=== PATIENT | female | born 1975 | race Caucasian/White ===

== ENCOUNTER 2016-04-08 17:27 | Emergency (ER) | payer OTHER ==
[~2016-04-08] VITALS: Wt 127.0 kg
[~2016-04-08 17:27] MED LIST: AMOXICILLIN500 MG PO; AMOXIL500 MG PO; ANTIVERT/2525 MG PO; AUGMENTIN 875-875 MG PO; BENTYL10 MG PO; CIPROFLOXACIN500 MG PO; DAYPRO600 M1 PO; DONNATAL1 TAB PO; EC NAPROSYN500 MG PO; FLAGYL500 MG PO; FLEXERIL10 MG PO; FLEXERIL5 MG PO; HYDROCODONE BIT1 T11 PO; KEFLEX500 MG PO; LOMOTIL 0.025 M1 TA1 PO; MIRALAX POWDER17 G1 PO; MOTRIN800 MG PO; Metformin Hydr500 MG PO; NAPROSYN500 MG PO; NAPROXEN500 M1 PO; NORCO 325 MG-51 TAB PO; NORCO 5-325 TA1 EACH PO; PRILOSEC10 MG PO; PRILOSEC20 MG PO; PRILOSEC40 MG PO; PROTONIX40 MG PO; ROBAXIN500 M1 PO; ROBITUSSIN AC 110 ML PO; SIMVASTATIN10 MG PO; TESSALON PERLE200 MG PO; TRAMADOL HCL50 MG PO; VICODIN 500 MG-1 TAB PO; XANAX0.5 MG PO; ZITHROMAX Z PA250 MG PO; ZOFRAN4 MG PO; ZOLOFT100 MG PO; ZOLOFT25 MG PO; ZYRTEC10 MG PO
[2016-04-08 18:15] VITALS: BP 111/66
[2016-04-08] MEDS ORDERED: AMINOPHYLLIN200 MG PO (19:38)
[2016-04-08] MEDS ORDERED: VERTICALM25 MG PO (19:38)
[2016-04-08 19:57] LABS: BILIRUBIN NEGATIVE (NEGATIVE); BLOOD NEGATIVE (NEGATIVE); CLARITY SL CLOUDY (CLEAR); COLOR YELLOW (YELLOW); GLUCOSE NEGATIVE (NEGATIVE); KETONE NEGATIVE (NEGATIVE); LEUKO ESTERASE NEGATIVE (NEGATIVE); NITRITE NEGATIVE (NEGATIVE); PROTEIN NEGATIVE (NEGATIVE)
[2016-04-08 20:05] LABS: BACTERIA 1+
[2016-04-08 20:06] LABS: URINE REFLEX COMMENT NO (NO)
== END 2016-04-08 19:52 | disposition home or self-care (01) ==
LOC: ED 17:27
PROVIDERS: Nurse Practitioner Family
DX: N39.0 Urinary tract infection, site not specified (principal); H66.91 Otitis media, unspecified, right ear; R31.9 Hematuria, unspecified; F17.200 Nicotine dependence, unspecified, uncomplicated; Z79.899 Other long term (current) drug therapy

== ENCOUNTER 2016-04-26 14:56 | Emergency (ER) | payer OTHER ==
[~2016-04-26] VITALS: Wt 127.0 kg
[~2016-04-26 14:56] MED LIST changes: +AMINOPHYLLIN200 MG PO; +VERTICALM25 MG PO
[2016-04-26] MEDS ORDERED: ULTRAM50 MG PO (17:03)
[2016-04-26 17:06] VITALS: BP 102/49
== END 2016-04-26 17:31 | disposition home or self-care (01) ==
LOC: ED 14:56
DX: M54.5 Low back pain (principal); M54.2 Cervicalgia; R51 Headache; F17.200 Nicotine dependence, unspecified, uncomplicated; Z90.49 Acquired absence of other specified parts of digestive tract; V89.2XXA Person injured in unspecified motor-vehicle accident, traffic, initial encounter; Y93.89 Activity, other specified; Y92.413 State road as the place of occurrence of the external cause; Y99.9 Unspecified external cause status

== ENCOUNTER 2016-04-30 16:15 | Emergency (ER) | payer OTHER ==
[~2016-04-30] VITALS: Ht 170.1 cm; Wt 129.3 kg
[~2016-04-30 16:15] MED LIST changes: +ULTRAM50 MG PO
[2016-04-30 16:25] VITALS: BP 122/70
[2016-04-30 16:54] LABS: BILIRUBIN NEGATIVE (NEGATIVE); BLOOD NEGATIVE (NEGATIVE); CLARITY CLEAR (CLEAR); COLOR YELLOW (YELLOW); GLUCOSE NEGATIVE (NEGATIVE); KETONE NEGATIVE (NEGATIVE); LEUKO ESTERASE NEGATIVE (NEGATIVE); NITRITE NEGATIVE (NEGATIVE); PH 5.5 (5.0-9.0); PROTEIN TRACE (NEGATIVE); SPECIFIC GRAVITY >= 1.030 (1.005-1.030); UROBILINOGEN 0.2 E.U./dl (0.2-1.0)
[2016-04-30 17:01] LABS: BASO # 0.1 10*3/uL (0.0-0.1); BASO % 0.7 % (0.0-1.0); EOS # 0.4 10*3/uL (0.0-0.4); EOS % 2.3 % (1.0-4.0); HEMATOCRIT 37.7 % (37.0-47.0); HEMOGLOBIN 11.9 g/dl (12.0-16.0); IG # 0.3 10*3/uL (0.0-0.1); LYMPH # 4.1 10*3/uL (1.3-4.4); MEAN CELL VOLUME 89.8 fl (81.0-99.0); MEAN CORPUSCULAR HGB 28.3 pg (27.0-31.0); MEAN CORPUSCULAR HGB CONC 31.6 g/dl (33.0-37.0); MEAN PLATELET VOLUME 9.2 fl (9.6-12.3); MONO # 0.7 10*3/uL (0.1-1.0); MONO % 4.3 % (3.0-9.0); NEUT # 10.2 10*3/uL (2.3-7.9); NEUT % 64.9 % (47.0-73.0); PLATELET COUNT AUTOMATED 378 10*3/uL (130-400); RED CELL DISTRI WIDTH 15.5 % (0-14.5); WHITE BLOOD COUNT 15.8 10*3/uL (4.8-10.8)
[2016-04-30 17:13] LABS: MUCOUS TRACE; URINE REFLEX COMMENT NO (NO); WBC 0-2 wbc/hpf (0-5)
[2016-04-30 17:18] LABS: ALBUMIN 3.2 gm/dl (3.1-4.5); ALKALINE PHOSPHATASE 63 U/L (45-117); BILIRUBIN, TOTAL 0.3 mg/dl (0.2-1.0); BUN 20 mg/dl (7-24); CARBON DIOXIDE 28 mmol/L (21-32); CHLORIDE 105 mmol/L (98-107); EST GLOM FILT AFRICAN AMERICAN > 60 ml/min; GLUCOSE 108 mg/dL (65-99); POTASSIUM 3.8 mmol/L (3.5-5.1); SGOT/AST 11 IU/L (3-35); SGPT/ALT 24 U/L (12-78); SODIUM 141 mmol/L (136-145); TOTAL PROTEIN 7.1 gm/dL (6.4-8.2)
[2016-04-30] MEDS ORDERED: PERCOCET 325 MG1 TA2 PO (18:11)
== END 2016-04-30 18:19 | disposition home or self-care (01) ==
LOC: ED 16:15
PROVIDERS: Registered Nurse
DX: R10.11 Right upper quadrant pain (principal); F17.200 Nicotine dependence, unspecified, uncomplicated; Z90.49 Acquired absence of other specified parts of digestive tract; V89.2XXD Person injured in unspecified motor-vehicle accident, traffic, subsequent encounter; Y93.89 Activity, other specified; Y92.413 State road as the place of occurrence of the external cause; Y99.9 Unspecified external cause status

== ENCOUNTER 2016-07-01 19:49 | Emergency (ER) | payer OTHER ==
[~2016-07-01] VITALS: Ht 170.1 cm; Wt 127.0 kg
[~2016-07-01 19:49] MED LIST changes: +PERCOCET 325 MG1 TA2 PO
[2016-07-01 20:09] VITALS: BP 140/69
[2016-07-01] MEDS ORDERED: MINOCYCLINE HC100 MG PO (20:09)
== END 2016-07-02 01:03 | disposition home or self-care (01) ==
LOC: ED 19:49
DX: S80.01XA Contusion of right knee, initial encounter (principal); F17.200 Nicotine dependence, unspecified, uncomplicated; Z98.890 Other specified postprocedural states; Z98.51 Tubal ligation status; Z79.899 Other long term (current) drug therapy; X58.XXXA Exposure to other specified factors, initial encounter; Y93.89 Activity, other specified; Y92.89 Other specified places as the place of occurrence of the external cause; Y99.9 Unspecified external cause status

== ENCOUNTER 2016-07-27 19:49 | Emergency (ER) | payer OTHER ==
[~2016-07-27] VITALS: Ht 170.1 cm; Wt 127.0 kg
[~2016-07-27 19:49] MED LIST changes: +MINOCYCLINE HC100 MG PO
[2016-07-27 19:53] VITALS: BP 135/84
[2016-07-27] MEDS ORDERED: Motrin,Rufen800 MG PO (20:05)
[2016-07-27] MEDS ORDERED: CLINDAMYCIN150 MG PO (20:05)
== END 2016-07-27 20:11 | disposition home or self-care (01) ==
LOC: ED 19:49
DX: K02.9 Dental caries, unspecified (principal); K04.01 Reversible pulpitis; F17.200 Nicotine dependence, unspecified, uncomplicated; Z79.899 Other long term (current) drug therapy

== ENCOUNTER 2016-08-14 19:34 | Emergency (ER) | payer OTHER ==
[~2016-08-14] VITALS: Wt 127.0 kg
[~2016-08-14 19:34] MED LIST changes: +CLINDAMYCIN150 MG PO; +Motrin,Rufen800 MG PO
[2016-08-14 19:54] VITALS: BP 134/66
[2016-08-14] MEDS ORDERED: MEDROL DOSEPAK4 MG PO (20:06)
== END 2016-08-14 20:04 | disposition home or self-care (01) ==
LOC: ED 19:34
DX: L50.9 Urticaria, unspecified (principal); F17.200 Nicotine dependence, unspecified, uncomplicated; Z90.49 Acquired absence of other specified parts of digestive tract

== ENCOUNTER 2016-09-19 13:39 | Emergency (ER) | payer OTHER ==
[~2016-09-19] VITALS: Ht 170.1 cm; Wt 127.0 kg
[~2016-09-19 13:39] MED LIST changes: +MEDROL DOSEPAK4 MG PO
[2016-09-19 13:47] VITALS: BP 113/71
[2016-09-19 14:15] LABS: BILIRUBIN 1+ (NEGATIVE); BLOOD 2+ (NEGATIVE); CLARITY SL CLOUDY (CLEAR); COLOR YELLOW (YELLOW); GLUCOSE NEGATIVE (NEGATIVE); KETONE TRACE (NEGATIVE); LEUKO ESTERASE 1+ (NEGATIVE); NITRITE NEGATIVE (NEGATIVE); PH 5.5 (5.0-9.0); PROTEIN TRACE (NEGATIVE); SPECIFIC GRAVITY 1.025 (1.005-1.030); UROBILINOGEN 0.2 E.U./dl (0.2-1.0)
[2016-09-19 14:17] LABS: BACTERIA 1+; URINE REFLEX COMMENT YES (NO); WBC 16-20 wbc/hpf (0-5)
[2016-09-19] MEDS ORDERED: MACROBID100 M1 PO (14:18)
[2016-09-19] MEDS ORDERED: ANAPROX DS550 MG PO (14:22)
== END 2016-09-19 14:42 | disposition home or self-care (01) ==
LOC: ED 13:39
PROVIDERS: Emergency Medicine
DX: M25.552 Pain in left hip (principal); N30.01 Acute cystitis with hematuria; F17.200 Nicotine dependence, unspecified, uncomplicated; Z98.890 Other specified postprocedural states; Z98.51 Tubal ligation status; Z79.899 Other long term (current) drug therapy; Z90.710 Acquired absence of both cervix and uterus; X58.XXXA Exposure to other specified factors, initial encounter; Y93.01 Activity, walking, marching and hiking; Y92.89 Other specified places as the place of occurrence of the external cause; Y99.9 Unspecified external cause status

== ENCOUNTER 2016-12-30 19:04 | Emergency (ER) | payer OTHER ==
[~2016-12-30] VITALS: Ht 170.1 cm; Wt 131.5 kg
[~2016-12-30 19:04] MED LIST changes: +ANAPROX DS550 MG PO; +MACROBID100 M1 PO
[2016-12-30 19:18] VITALS: BP 115/62
[2016-12-30] MEDS ORDERED: FLONASE ALLERG9.9 ML NS (20:26)
[2016-12-30] MEDS ORDERED: AMOXICILLIN500 M2 PO (20:26)
== END 2016-12-30 20:55 | disposition home or self-care (01) ==
LOC: ED 19:04
DX: J06.9 Acute upper respiratory infection, unspecified (principal); J02.9 Acute pharyngitis, unspecified; F17.200 Nicotine dependence, unspecified, uncomplicated; Z98.890 Other specified postprocedural states; Z98.51 Tubal ligation status; Z79.899 Other long term (current) drug therapy

== ENCOUNTER 2017-06-23 18:03 | Emergency (ER) | payer OTHER ==
[~2017-06-23] VITALS: Wt 131.5 kg
[~2017-06-23 18:03] MED LIST changes: +AMOXICILLIN500 M2 PO; +FLONASE ALLERG9.9 ML NS
[2017-06-23 18:09] VITALS: BP 123/68
[2017-06-23 20:16] LABS: BILIRUBIN NEGATIVE (NEGATIVE); BLOOD NEGATIVE (NEGATIVE); CLARITY SL CLOUDY (CLEAR); COLOR YELLOW (YELLOW); GLUCOSE NEGATIVE (NEGATIVE); KETONE TRACE (NEGATIVE); LEUKO ESTERASE NEGATIVE (NEGATIVE); NITRITE NEGATIVE (NEGATIVE); PH 5.5 (5.0-9.0); UROBILINOGEN 0.2 E.U./dl (0.2-1.0)
[2017-06-23 20:30] LABS: BACTERIA TRACE; EPITHELIAL CELLS 25-30; MUCOUS 1+; RBC 0-2 rbc/hpf (0-2)
[2017-06-23] MEDS ORDERED: MEDROL DOSEPAK4 MG PO (21:05)
[2017-06-23] MEDS ORDERED: CYCLOBENZAPRINE5 M3 PO (21:05)
== END 2017-06-23 21:09 | disposition home or self-care (01) ==
LOC: ED 18:03
PROVIDERS: Nurse Practitioner Family
DX: M54.16 Radiculopathy, lumbar region (principal); F17.200 Nicotine dependence, unspecified, uncomplicated; Z98.890 Other specified postprocedural states; Z98.51 Tubal ligation status; Z79.899 Other long term (current) drug therapy

== ENCOUNTER 2017-10-24 12:53 | Inpatient (IN) | payer OTHER ==
[~2017-10-24] VITALS: Ht 170.1 cm; Wt 131.7 kg
--- NOTE | ~2017-10-24 | EKG ---
[place], [place] ELECTROCARDIOGRAM REPORT NAME: BRITNI DUNCAN UNIT #: [id number] ROOM: 504 DOCTOR: BELTRAN DRAFT REPORT BIRTHDATE: [birth year] [facility] [place] [facility] Test Date: 2017-10-24 Test Time: 13:43:19 Pat Name: BRITNI DUNCAN Department: Room: Gender: F [employer]: [id number] : 1975 Requested By: JUAN VALDEZ Order Number: [id number] Reading MD: Xu Nicole MD Measurements Intervals [place] Rate: 54 P: 30 CT: 121 QRS: 18 QRSD: 95 T: 46 QT: 427 QTc: 405 Interpretive Statements Sinus rhythm Atrial premature complexes Poor precordial R-wave progression Low voltage, precordial leads Baseline wander in lead(s) V6 Electronically Signed On 10-27-2017 18:32:37 PDT by Xu Nicole MD CM:EKGRPT:ELECTROCARDIOGRAM REPORT [id number] JUAN HANKS DRAFT REPORT JUAN VALDEZ DO
--- NOTE | ~2017-10-24 | DS ---
[place], [place] DISCHARGE SUMMARY NAME: BRITNI DUNCAN [facility] #: [id number] UNIT #: [id number] ROOM: 504 DOCTOR: TRAV DIOP MD BIRTHDATE: [birth year] DOS: 10/26/2017 DIAGNOSES: 1. Fall, possibly vasovagal syncope. 2. Laceration of the scalp, status post 6 pete. 3. Chronic neck pain and chronic low back pain. 4. Gastroesophageal reflux disease. 5. Mixed hyperlipidemia. 6. Major depression, mild, recurrent. 7. Postconcussion syndrome. MEDICATIONS ON DISCHARGE: Meclizine 12.5 twice a day p.r.n. for dizziness, Zoloft 150 daily, simvastatin 10 daily, Protonix 40 daily, naproxen 500 b.i.d., Bentyl 10 b.i.d., Xanax 0.5 at bedtime p.r.n., gabapentin 600 b.i.d., [place] 5 t.i.d. p.r.n., Zanaflex was discontinued. HOSPITAL COURSE: The patient is 42 years old who presents after having some vague syncopal episode at home. She fell on the floor, hit her head and developed a laceration, was seen in the Emergency Room. She had 5 pete placed and after that she continued to complain of nausea and headaches and thought she may have slight concussion. CT of the head and cervical spine did not show any acute changes. Carotid Doppler did not show any atherosclerosis. The patient is advised to discontinue the Zanaflex. She is ambulating to the bathroom and not having any problems, so the plan is to discharge her to home today. We will remove the pete as an outpatient. She is advised to come to the office on the for removal. TRAV DIOP MD CM:DISCHARG 9 24 TRAV DIOP MD 10/26/17 1724 interface
--- NOTE | ~2017-10-24 | WRIGHTHP ---
[place], [place] PATIENT HISTORY AND PHYSICAL EXAM NAME: BRITNI DUNCAN [facility] #: [id number] UNIT #: [id number] ROOM: 504 DOCTOR: TRAV DIOP MD BIRTHDATE: [birth year] DOS: 10/24/2017 HISTORY OF PRESENT ILLNESS: The patient is very well known to us, she was seen here in the office yesterday morning. The patient says that she went shopping after that she went home and her back was hurting. She took 2 pain pills, did not take anything else with it and she was found unresponsive on the floor by her . She had a laceration of the scalp and she apparently had hit her head on the floor. She came to the Emergency Room. She did not remember having a syncopal episode and did not remember what had happened before that event. She denies having any dizziness or lightheadedness. She does complain of some nausea after admission and some dizziness this morning. She denies any chest pains, palpitations, does not have any fever or chills. PAST MEDICAL HISTORY: Significant for: 1. Chronic low back and neck pain. 2. Gastroesophageal reflux disease. 3. Major depression, mixed hyperlipidemia. MEDICATIONS: Tizanidine 2 mg at bedtime, simvastatin 10 daily, Zoloft 150 daily, Protonix 40 daily, naproxen 500 b.i.d., [place] 5 t.i.d. p.r.n., gabapentin 600 b.i.d., Bentyl 10 b.i.d., Xanax 0.5 at bedtime p.r.n. SOCIAL HISTORY: Smoker of about half to 1 pack of cigarettes a day. Denies using any alcohol. PHYSICAL EXAMINATION: GENERAL: She is awake and alert and oriented this morning. VITAL SIGNS: Graphic trend shows pressure 101/63, pulse of 78, respirations 20, temperature 98.1. LUNGS: Clear. HEART: Regular. ABDOMEN: Obese. EXTREMITIES: Without any edema. LABORATORY DATA: White cell count is elevated at 11.9, hemoglobin and hematocrit normal, platelets normal. Lactic acid 1.8. Protime therapeutic. CT of the head unremarkable. 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 ASSESSMENT AND PLAN: 1. The patient with possible vasovagal syncope. The patient has been given IV fluids. 2. Concussion posttraumatic being treated with IV fluids and Antivert. Carotid Doppler will be ordered. 3. Elevated white cell count, possibly stress effect, possibly an underlying urinary tract infection. Urine culture will be sent. [place], [place] PATIENT HISTORY AND PHYSICAL EXAM NAME: BRITNI DUNCAN UNIT #: [id number] ROOM: [facility] DOCTOR: TRAV DIOP MD BIRTHDATE: [birth year] TRAV DIOP MD CM:HISPHYS:PATIENT HISTORY AND PHYSICAL EXAMINATION [id number] 3 TRAV DIOP MD 10/25/17711 interface
--- NOTE | ~2017-10-24 | PR ---
[place], [place] PROGRESS NOTE [id number] UNIT #: [id number] ROOM: 504 DOCTOR: TRAV DIOP MD BIRTHDATE: [birth year] DOS: SUBJECTIVE: The patient has headaches, but does not have any other complaints. OBJECTIVE EXAMINATION: GENERAL: She is awake, alert, and oriented. VITAL SIGNS: Blood pressure is 104/53, pulse of 59, respirations 20, temperature 98.3. LUNGS: Clear. HEART: Regular. ABDOMEN: Obese, soft, nontender. EXTREMITIES: Without any edema, 6 pete on her scalp. Laceration is clean. ASSESSMENT AND PLAN: The patient is with possible vasovagal syncope with resultant fall and injury to the scalp and postconcussion syndrome, stable. The plan is to discharge her to home today to follow up with us as an outpatient. Laceration of the scalp, status post pete. The patient is to have it removed sometime next week. TRAV DIOP MD CM:PNTRANS 17 TRAV DIOP MD 10/26/17 2217 interface
[~2017-10-24 12:53] MED LIST changes: +CYCLOBENZAPRINE5 M3 PO
[2017-10-24 12:56] VITALS: BP 118/88
[2017-10-24 13:44] LABS: BASO # 0.1 10*3/uL (0.0-0.1); BASO % 0.8 % (0.0-1.0); EOS # 0.6 10*3/uL (0.0-0.4); EOS % 4.8 % (1.0-4.0); HEMATOCRIT 38.3 % (37.0-47.0); LYMPH # 2.5 10*3/uL (1.3-4.4); LYMPH % 20.8 % (27.0-41.0); MEAN CORPUSCULAR HGB 27.6 pg (27.0-31.0); MEAN CORPUSCULAR HGB CONC 31.3 g/dl (33.0-37.0); MEAN PLATELET VOLUME 9.6 fl (9.6-12.3); MONO # 0.5 10*3/uL (0.1-1.0); MONO % 3.9 % (3.0-9.0); NEUT # 8.2 10*3/uL (2.3-7.9); NEUT % 68.9 % (47.0-73.0); PLATELET COUNT AUTOMATED 340 10*3/uL (130-400); RED BLOOD COUNT 4.35 10*6/uL (4.10-5.10); RED CELL DISTRI WIDTH 16.2 % (0-14.5); WHITE BLOOD COUNT 11.9 10*3/uL (4.8-10.8)
[2017-10-24 13:52] LABS: ACT PARTIAL THROMBO TIME 26.3 SECONDS (20.8-31.5)
[2017-10-24 14:01] LABS: ALBUMIN 3.7 gm/dl (3.1-4.5); ALKALINE PHOSPHATASE 64 U/L (45-117); BUN 15 mg/dl (7-24); CHLORIDE 107 mmol/L (98-107); CREATININE 0.95 mg/dL (0.55-1.02); LIPASE 114 U/L (73-393); POTASSIUM 4.2 mmol/L (3.5-5.1); SGOT/AST 20 IU/L (3-35); SGPT/ALT 24 U/L (12-78); SODIUM 140 mmol/L (136-145); TOTAL PROTEIN 7.3 gm/dL (6.4-8.2)
[2017-10-24 14:03] LABS: BETA-HCG, QUANT < 1.0 mIU/mL (1-3); TROPONIN I < 0.015 ng/ml (<0.045)
[2017-10-24 15:12] VITALS: BP 108/50
[2017-10-24 18:05] VITALS: BP 114/66
[2017-10-24 18:46] VITALS: BP 113/60
[2017-10-24] MEDS ORDERED: NEURONTIN600 MG PO (19:56)
[2017-10-24] MEDS ORDERED: TIZANIDINE2 MG PO (19:56)
[2017-10-24 20:00] VITALS: BP 113/60
[2017-10-25] VITALS (7 sets, daily range): BP systolic 101–114; BP diastolic 47–65
[2017-10-26] VITALS: BP 104/53
[2017-10-26] MEDS ORDERED: MECLIZINE HYD12.5 MG PO (06:05)
[2017-10-26 08:00] VITALS: BP 94/50
[2017-10-26 11:36] VITALS: BP 122/65
== END 2017-10-26 12:20 | disposition home or self-care (01) | DRG 312 ==
LOC: ED 12:53 → EDHOLD 17:32 → 5E 17:57
PROVIDERS: Emergency Medicine
PROC: 0HQ0XZZ Repair Scalp Skin, External Approach (ICD-10-PCS; principal; 2017-10-24)
DX: R55 Syncope and collapse (principal); F07.81 Postconcussional syndrome; F33.0 Major depressive disorder, recurrent, mild; E78.2 Mixed hyperlipidemia; G89.29 Other chronic pain; K21.9 Gastro-esophageal reflux disease without esophagitis; W18.30XA Fall on same level, unspecified, initial encounter; M54.2 Cervicalgia; M54.5 Low back pain; S01.01XA Laceration without foreign body of scalp, initial encounter; F17.210 Nicotine dependence, cigarettes, uncomplicated; Z98.891 History of uterine scar from previous surgery; Y93.89 Activity, other specified; Y99.8 Other external cause status; Z98.51 Tubal ligation status; Y92.091 Bathroom in other non-institutional residence as the place of occurrence of the external cause

== ENCOUNTER → 2017-11-10 | Outpatient (CLI) | payer OTHER ==
[~2017-11-10] MED LIST changes: +MECLIZINE HYD12.5 MG PO; +NEURONTIN600 MG PO; +TIZANIDINE2 MG PO
== END | disposition home or self-care (01) ==
LOC: MRI 08:38
DX: S01.91XA Laceration without foreign body of unspecified part of head, initial encounter (principal); X58.XXXA Exposure to other specified factors, initial encounter; Y93.89 Activity, other specified; Y92.89 Other specified places as the place of occurrence of the external cause; Y99.8 Other external cause status

== ENCOUNTER 2018-03-08 17:05 | Emergency (ER) | payer OTHER ==
[~2018-03-08] VITALS: Ht 170.1 cm; Wt 131.5 kg
[2018-03-08 17:07] VITALS: BP 120/39
[2018-03-08 17:37] LABS: BASO # 0.1 10*3/uL (0.0-0.1); BASO % 1.1 % (0.0-1.0); EOS # 0.5 10*3/uL (0.0-0.4); EOS % 6.4 % (1.0-4.0); HEMATOCRIT 33.4 % (37.0-47.0); HEMOGLOBIN 10.7 g/dl (12.0-16.0); LYMPH # 2.6 10*3/uL (1.3-4.4); LYMPH % 31.2 % (27.0-41.0); MEAN CELL VOLUME 85.6 fl (81.0-99.0); MEAN CORPUSCULAR HGB 27.4 pg (27.0-31.0); MONO # 0.4 10*3/uL (0.1-1.0); MONO % 4.6 % (3.0-9.0); NEUT # 4.8 10*3/uL (2.3-7.9); NEUT % 56.3 % (47.0-73.0); PLATELET COUNT AUTOMATED 291 10*3/uL (130-400); RED CELL DISTRI WIDTH 15.3 % (0-14.5); WHITE BLOOD COUNT 8.4 10*3/uL (4.8-10.8)
[2018-03-08 17:51] LABS: ALBUMIN 2.9 gm/dl (3.1-4.5); ALKALINE PHOSPHATASE 49 U/L (45-117); BUN 8 mg/dl (7-24); CHLORIDE 106 mmol/L (98-107); CREATININE 0.73 mg/dL (0.55-1.02); LIPASE 253 U/L (73-393); SGOT/AST 14 IU/L (3-35); SGPT/ALT 21 U/L (12-78); SODIUM 142 mmol/L (136-145); TOTAL PROTEIN 6.5 gm/dL (6.4-8.2)
[2018-03-08 19:34] LABS: BILIRUBIN NEGATIVE (NEGATIVE); BLOOD NEGATIVE (NEGATIVE); CLARITY SL CLOUDY (CLEAR); COLOR YELLOW (YELLOW); GLUCOSE NEGATIVE (NEGATIVE); KETONE NEGATIVE (NEGATIVE); LEUKO ESTERASE NEGATIVE (NEGATIVE); NITRITE NEGATIVE (NEGATIVE); SPECIFIC GRAVITY 1.025 (1.005-1.030); UROBILINOGEN 0.2 E.U./dl (0.2-1.0)
[2018-03-08 19:40] LABS: BACTERIA 3+; MUCOUS 1+; RBC 0-2 rbc/hpf (0-2)
[2018-03-08] MEDS ORDERED: FLAGYL500 MG PO (20:26)
[2018-03-08] MEDS ORDERED: CIPRO500 MG PO (20:26)
== END 2018-03-08 20:35 | disposition home or self-care (01) ==
LOC: ED 17:05
PROVIDERS: Physician Assistant
DX: R10.32 Left lower quadrant pain (principal); Z79.899 Other long term (current) drug therapy; Z98.890 Other specified postprocedural states

== ENCOUNTER 2018-03-22 12:56 | Emergency (ER) | payer OTHER ==
[~2018-03-22] VITALS: Ht 170.1 cm; Wt 127.0 kg
[~2018-03-22 12:56] MED LIST changes: +CIPRO500 MG PO
[2018-03-22 13:28] LABS: BASO % 0.5 % (0.0-1.0); EOS # 0.2 10*3/uL (0.0-0.4); EOS % 2.9 % (1.0-4.0); HEMATOCRIT 36.9 % (37.0-47.0); HEMOGLOBIN 11.7 g/dl (12.0-16.0); LYMPH # 1.5 10*3/uL (1.3-4.4); LYMPH % 18.1 % (27.0-41.0); MEAN CELL VOLUME 85.6 fl (81.0-99.0); MEAN CORPUSCULAR HGB 27.1 pg (27.0-31.0); MEAN CORPUSCULAR HGB CONC 31.7 g/dl (33.0-37.0); MEAN PLATELET VOLUME 9.5 fl (9.6-12.3); MONO # 0.4 10*3/uL (0.1-1.0); MONO % 4.5 % (3.0-9.0); NEUT # 6.2 10*3/uL (2.3-7.9); NEUT % 73.4 % (47.0-73.0); PLATELET COUNT AUTOMATED 350 10*3/uL (130-400); RED BLOOD COUNT 4.31 10*6/uL (4.10-5.10); RED CELL DISTRI WIDTH 15.8 % (0-14.5); WHITE BLOOD COUNT 8.4 10*3/uL (4.8-10.8)
[2018-03-22 13:43] LABS: ALBUMIN 3.5 gm/dl (3.1-4.5); ALKALINE PHOSPHATASE 58 U/L (45-117); BUN 12 mg/dl (7-24); CHLORIDE 108 mmol/L (98-107); CREATININE 0.95 mg/dL (0.55-1.02); LIPASE 66 U/L (73-393); POTASSIUM 3.1 mmol/L (3.5-5.1); SGOT/AST 15 IU/L (3-35); SGPT/ALT 26 U/L (12-78); SODIUM 140 mmol/L (136-145); TOTAL PROTEIN 7.4 gm/dL (6.4-8.2)
[2018-03-22 13:48] LABS: BILIRUBIN NEGATIVE (NEGATIVE); BLOOD 3+ (NEGATIVE); CLARITY CLOUDY (CLEAR); COLOR YELLOW (YELLOW); GLUCOSE NEGATIVE (NEGATIVE); KETONE NEGATIVE (NEGATIVE); LEUKO ESTERASE 1+ (NEGATIVE); NITRITE NEGATIVE (NEGATIVE); PH 5.5 (5.0-9.0); SPECIFIC GRAVITY >= 1.030 (1.005-1.030); UROBILINOGEN 0.2 E.U./dl (0.2-1.0)
[2018-03-22 14:14] LABS: RBC TNTC rbc/hpf (0-2)
[2018-03-22 14:16] LABS: BACTERIA 1+; EPITHELIAL CELLS 16-20; WBC 21-30 wbc/hpf (0-5)
[2018-03-22 14:51] VITALS: BP 114/56
[2018-03-22] MEDS ORDERED: CEFUROXIME AXE500 MG PO (15:05)
[2018-03-22] MEDS ORDERED: ZOFRAN4 MG PO (15:05)
== END 2018-03-22 15:12 | disposition home or self-care (01) ==
LOC: ED 12:56
PROVIDERS: Nurse Practitioner Family
DX: K29.70 Gastritis, unspecified, without bleeding (principal); Z79.899 Other long term (current) drug therapy

== ENCOUNTER 2018-07-24 17:26 | Emergency (ER) | payer OTHER ==
[~2018-07-24] VITALS: Ht 170.1 cm; Wt 129.3 kg
[~2018-07-24 17:26] MED LIST changes: +CEFUROXIME AXE500 MG PO
[2018-07-24 17:27] VITALS: BP 135/64
== END 2018-07-24 19:07 | disposition home or self-care (01) ==
LOC: ED 17:26
DX: B34.9 Viral infection, unspecified (principal); Z79.2 Long term (current) use of antibiotics; Z79.899 Other long term (current) drug therapy; Z90.49 Acquired absence of other specified parts of digestive tract

== ENCOUNTER 2018-10-10 17:13 | Emergency (ER) | payer OTHER ==
[~2018-10-10] VITALS: Ht 170.1 cm; Wt 127.0 kg
[2018-10-10 17:14] VITALS: BP 109/63
[2018-10-10 17:50] LABS: BILIRUBIN 2+ (NEGATIVE); BLOOD 3+ (NEGATIVE); CLARITY CLOUDY (CLEAR); COLOR ORANGE (YELLOW); GLUCOSE NEGATIVE (NEGATIVE); KETONE TRACE (NEGATIVE); LEUKO ESTERASE 1+ (NEGATIVE); NITRITE POSITIVE (NEGATIVE); PH 6.5 (5.0-9.0); SPECIFIC GRAVITY 1.025 (1.005-1.030)
[2018-10-10 18:07] LABS: RBC TNTC rbc/hpf (0-2)
[2018-10-10 18:30] LABS: BASO # 0.1 10*3/uL (0.0-0.1); BASO % 0.6 % (0.0-1.0); EOS # 0.3 10*3/uL (0.0-0.4); EOS % 2.8 % (1.0-4.0); HEMATOCRIT 37.6 % (37.0-47.0); HEMOGLOBIN 11.5 g/dl (12.0-16.0); LYMPH # 1.5 10*3/uL (1.3-4.4); LYMPH % 14.3 % (27.0-41.0); MEAN CELL VOLUME 87.2 fl (81.0-99.0); MEAN CORPUSCULAR HGB 26.7 pg (27.0-31.0); MEAN CORPUSCULAR HGB CONC 30.6 g/dl (33.0-37.0); MEAN PLATELET VOLUME 9.9 fl (9.6-12.3); MONO # 0.6 10*3/uL (0.1-1.0); MONO % 5.9 % (3.0-9.0); NEUT # 7.9 10*3/uL (2.3-7.9); NEUT % 75.8 % (47.0-73.0); PLATELET COUNT AUTOMATED 325 10*3/uL (130-400); RED BLOOD COUNT 4.31 10*6/uL (4.10-5.10); RED CELL DISTRI WIDTH 16.2 % (0-14.5); WHITE BLOOD COUNT 10.5 10*3/uL (4.8-10.8)
[2018-10-10 18:45] LABS: ALBUMIN 3.4 gm/dl (3.1-4.5); ALKALINE PHOSPHATASE 65 U/L (45-117); BUN 13 mg/dl (7-24); CHLORIDE 107 mmol/L (98-107); CREATININE 0.91 mg/dL (0.55-1.02); POTASSIUM 4.4 mmol/L (3.5-5.1); SGOT/AST 14 IU/L (3-35); SGPT/ALT 24 U/L (12-78); SODIUM 142 mmol/L (136-145); TOTAL PROTEIN 7.8 gm/dL (6.4-8.2)
[2018-10-10] MEDS ORDERED: SEPTDS PO (19:47)
== END 2018-10-10 19:46 | disposition home or self-care (01) ==
LOC: ED 17:13
PROVIDERS: Nurse Practitioner Family
DX: N39.0 Urinary tract infection, site not specified (principal); Z79.899 Other long term (current) drug therapy

== ENCOUNTER 2018-11-08 05:33 | Emergency (ER) | payer OTHER ==
[~2018-11-08] VITALS: Ht 170.1 cm; Wt 127.0 kg
[~2018-11-08 05:33] MED LIST changes: +SEPTDS PO
[2018-11-08 05:34] VITALS: BP 113/48
[2018-11-08 06:05] LABS: BILIRUBIN NEGATIVE (NEGATIVE); BLOOD NEGATIVE (NEGATIVE); CLARITY SL CLOUDY (CLEAR); COLOR YELLOW (YELLOW); GLUCOSE NEGATIVE (NEGATIVE); KETONE NEGATIVE (NEGATIVE); LEUKO ESTERASE NEGATIVE (NEGATIVE); NITRITE NEGATIVE (NEGATIVE); SPECIFIC GRAVITY 1.025 (1.005-1.030); UROBILINOGEN 0.2 E.U./dl (0.2-1.0)
[2018-11-08 06:19] LABS: BACTERIA 2+; CALCIUM OXALATE CRYSTALS TRACE; MUCOUS 1+
[2018-11-08 06:22] LABS: BASO # 0.1 10*3/uL (0.0-0.1); BASO % 0.8 % (0.0-1.0); EOS # 0.6 10*3/uL (0.0-0.4); EOS % 5.8 % (1.0-4.0); HEMATOCRIT 34.8 % (37.0-47.0); HEMOGLOBIN 10.8 g/dl (12.0-16.0); LYMPH # 3.3 10*3/uL (1.3-4.4); LYMPH % 30.9 % (27.0-41.0); MEAN CELL VOLUME 89.2 fl (81.0-99.0); MEAN CORPUSCULAR HGB 27.7 pg (27.0-31.0); MEAN PLATELET VOLUME 9.4 fl (9.6-12.3); MONO # 0.6 10*3/uL (0.1-1.0); MONO % 5.5 % (3.0-9.0); NEUT % 55.6 % (47.0-73.0); PLATELET COUNT AUTOMATED 304 10*3/uL (130-400); RED CELL DISTRI WIDTH 17.8 % (0-14.5); WHITE BLOOD COUNT 10.8 10*3/uL (4.8-10.8)
[2018-11-08 06:38] LABS: ALBUMIN 3.4 gm/dl (3.1-4.5); ALKALINE PHOSPHATASE 57 U/L (45-117); BUN 13 mg/dl (7-24); CHLORIDE 111 mmol/L (98-107); CREATININE 0.78 mg/dL (0.55-1.02); LIPASE 162 U/L (73-393); POTASSIUM 3.8 mmol/L (3.5-5.1); SGOT/AST 15 IU/L (3-35); SGPT/ALT 19 U/L (12-78); SODIUM 143 mmol/L (136-145); TOTAL PROTEIN 7.2 gm/dL (6.4-8.2)
[2018-11-08] MEDS ORDERED: IBU800 MG PO (06:51)
[2018-11-08] MEDS ORDERED: CYCLOBENZAPRINE10 MG PO (06:51)
== END 2018-11-08 07:45 | disposition home or self-care (01) ==
LOC: ED 05:33
PROVIDERS: Student in an Organized Health Care Education/Training Program
DX: M54.9 Dorsalgia, unspecified (principal); R10.9 Unspecified abdominal pain; R11.0 Nausea; F17.200 Nicotine dependence, unspecified, uncomplicated; Z79.899 Other long term (current) drug therapy; Z90.49 Acquired absence of other specified parts of digestive tract

== ENCOUNTER 2019-02-01 10:44 | Emergency (ER) | payer OTHER ==
[~2019-02-01] VITALS: Ht 170.1 cm; Wt 131.5 kg
[~2019-02-01 10:44] MED LIST changes: +CYCLOBENZAPRINE10 MG PO; +IBU800 MG PO
[2019-02-01] MEDS ORDERED: METHOCARBAMOL750 M1 PO (11:00)
[2019-02-01] MEDS ORDERED: PROPRANOLOL HCL40 MG PO (11:00)
[2019-02-01] MEDS ORDERED: BUSPIRONE HCL10 MG PO (11:00)
[2019-02-01] MEDS ORDERED: Carafate1 GM PO (11:01)
[2019-02-01 11:43] LABS: BASO # 0.1 10*3/uL (0.0-0.1); EOS # 0.5 10*3/uL (0.0-0.4); EOS % 5.4 % (1.0-4.0); HEMOGLOBIN 12.1 g/dl (12.0-16.0); LYMPH # 2.9 10*3/uL (1.3-4.4); LYMPH % 32.2 % (27.0-41.0); MEAN CELL VOLUME 91.4 fl (81.0-99.0); MEAN CORPUSCULAR HGB 29.9 pg (27.0-31.0); MEAN CORPUSCULAR HGB CONC 32.7 g/dl (33.0-37.0); MEAN PLATELET VOLUME 9.4 fl (9.6-12.3); MONO # 0.5 10*3/uL (0.1-1.0); MONO % 6.1 % (3.0-9.0); NEUT # 4.9 10*3/uL (2.3-7.9); NEUT % 54.6 % (47.0-73.0); PLATELET COUNT AUTOMATED 313 10*3/uL (130-400); RED BLOOD COUNT 4.05 10*6/uL (4.10-5.10); RED CELL DISTRI WIDTH 14.5 % (0-14.5); WHITE BLOOD COUNT 8.9 10*3/uL (4.8-10.8)
[2019-02-01 11:58] LABS: ALBUMIN 3.1 gm/dl (3.1-4.5); ALKALINE PHOSPHATASE 53 U/L (45-117); BUN 14 mg/dl (7-24); CHLORIDE 109 mmol/L (98-107); CREATININE 0.78 mg/dL (0.55-1.02); POTASSIUM 3.6 mmol/L (3.5-5.1); SGOT/AST 17 IU/L (3-35); SGPT/ALT 22 U/L (12-78); SODIUM 141 mmol/L (136-145); TOTAL PROTEIN 6.6 gm/dL (6.4-8.2)
[2019-02-01 12:29] VITALS: BP 147/54
== END 2019-02-01 14:31 | disposition home or self-care (01) ==
LOC: ED 10:44
PROVIDERS: Emergency Medicine
DX: H02.402 Unspecified ptosis of left eyelid (principal); R51 Headache; E78.5 Hyperlipidemia, unspecified; G43.909 Migraine, unspecified, not intractable, without status migrainosus; K21.9 Gastro-esophageal reflux disease without esophagitis; F17.200 Nicotine dependence, unspecified, uncomplicated; Z79.899 Other long term (current) drug therapy; Z90.49 Acquired absence of other specified parts of digestive tract

== ENCOUNTER 2019-02-18 19:37 | Emergency (ER) | payer OTHER ==
[~2019-02-18] VITALS: Ht 170.1 cm; Wt 136.1 kg
[~2019-02-18 19:37] MED LIST changes: +BUSPIRONE HCL10 MG PO; +Carafate1 GM PO; +METHOCARBAMOL750 M1 PO; +PROPRANOLOL HCL40 MG PO
[2019-02-18 19:38] VITALS: BP 135/66
[2019-02-18] MEDS ORDERED: ZITHROMAX250 MG PO (20:01)
== END 2019-02-18 20:11 | disposition home or self-care (01) ==
LOC: ED 19:37
DX: J40 Bronchitis, not specified as acute or chronic (principal); K21.9 Gastro-esophageal reflux disease without esophagitis; E78.00 Pure hypercholesterolemia, unspecified; F17.200 Nicotine dependence, unspecified, uncomplicated; Z79.899 Other long term (current) drug therapy

== ENCOUNTER 2019-05-20 18:19 | Emergency (ER) | payer OTHER ==
[~2019-05-20] VITALS: Ht 170.1 cm; Wt 133.4 kg
[~2019-05-20 18:19] MED LIST changes: +ZITHROMAX250 MG PO
[2019-05-20 18:23] VITALS: BP 129/59
[2019-05-20] MEDS ORDERED: MEDROL DOSEPAK4 MG PO (20:21)
[2019-05-20] MEDS ORDERED: METHOCARBAMOL500 M1 PO (20:21)
== END 2019-05-20 20:22 | disposition home or self-care (01) ==
LOC: ED 18:19
DX: M54.42 Lumbago with sciatica, left side (principal); Z79.2 Long term (current) use of antibiotics; Z79.899 Other long term (current) drug therapy

== ENCOUNTER → 2019-06-14 | Outpatient (CLI) | payer OTHER ==
[~2019-06-14] MED LIST changes: +METHOCARBAMOL500 M1 PO
== END | disposition home or self-care (01) ==
LOC: RAD 11:19
DX: M25.551 Pain in right hip (principal); M25.552 Pain in left hip

== ENCOUNTER 2020-01-12 20:26 | Emergency (ER) | payer OTHER ==
[~2020-01-12] VITALS: Ht 170.1 cm; Wt 138.3 kg
[2020-01-12 20:55] VITALS: BP 120/67
== END 2020-01-12 21:47 | disposition left against medical advice (07) ==
LOC: ED 20:26
DX: J02.9 Acute pharyngitis, unspecified (principal); Z53.21 Procedure and treatment not carried out due to patient leaving prior to being seen by health care provider

== ENCOUNTER 2020-02-11 01:54 | Emergency (ER) | payer OTHER ==
[~2020-02-11] VITALS: Ht 170.1 cm; Wt 133.8 kg
[2020-02-11] MEDS ORDERED: AMOXICILLIN500 M2 PO (02:57)
[2020-02-11 03:02] VITALS: BP 100/59
== END 2020-02-11 03:18 | disposition home or self-care (01) ==
LOC: ED 01:54
DX: J03.90 Acute tonsillitis, unspecified (principal); Z79.899 Other long term (current) drug therapy

== ENCOUNTER → 2020-04-19 | Outpatient (CLI) | payer OTHER ==
[~2020-04-19] MED LIST changes: +PREDNISONE50 MG PO; +ROBAXIN-750750 MG PO
== END | disposition home or self-care (01) ==
LOC: COVID19 15:52
PROVIDERS: ATTEND Internal Medicine
DX: U07.1 COVID-19 (principal)

== ENCOUNTER 2020-07-23 19:41 | Emergency (ER) | payer OTHER ==
[~2020-07-23] VITALS: Ht 170.1 cm; Wt 127.0 kg
[~2020-07-23 19:41] MED LIST changes: -PREDNISONE50 MG PO; -ROBAXIN-750750 MG PO
[2020-07-23 19:51] VITALS: BP 111/68
[2020-07-23] MEDS ORDERED: ROBAXIN-750750 MG PO (19:54)
[2020-07-23] MEDS ORDERED: NAPROSYN500 MG PO (19:54)
[2020-07-24] MEDS ORDERED: PREDNISONE50 MG PO (16:45)
== END 2020-07-23 19:57 | disposition home or self-care (01) ==
LOC: ED 19:41
DX: M54.42 Lumbago with sciatica, left side (principal); E66.9 Obesity, unspecified; Z98.51 Tubal ligation status; Z98.890 Other specified postprocedural states; Z79.899 Other long term (current) drug therapy

== ENCOUNTER 2020-07-24 12:23 | Emergency (ER) | payer OTHER ==
[~2020-07-24] VITALS: Ht 170.1 cm; Wt 127.0 kg
[~2020-07-24 12:23] MED LIST changes: +ROBAXIN-750750 MG PO
[2020-07-24 12:43] VITALS: BP 132/52
[2020-07-24 13:20] LABS: BILIRUBIN Negative (Negative); BLOOD Negative (Negative); CLARITY Clear (Clear); COLOR Yellow (Yellow); GLUCOSE Negative (Negative); KETONE Negative (Negative); LEUKO ESTERASE Negative (Negative); NITRITE Negative (Negative); SPECIFIC GRAVITY 1.025 (1.001-1.030); UROBILINOGEN 0.2 E.U./dl (0.0-1.0)
[2020-07-24 13:32] LABS: MUCOUS 1+; RBC 0-2 rbc/hpf (0-2); WBC 0-2 wbc/hpf (0-5)
[2020-07-24 13:33] LABS: BACTERIA 1+
[2020-07-24] MEDS ORDERED: PREDNISONE50 MG PO (16:45)
== END 2020-07-24 16:52 | disposition home or self-care (01) ==
LOC: ED 12:23
PROVIDERS: Emergency Medicine
DX: M54.42 Lumbago with sciatica, left side (principal); F17.200 Nicotine dependence, unspecified, uncomplicated; Z79.899 Other long term (current) drug therapy; Z98.890 Other specified postprocedural states

== ENCOUNTER → 2020-09-28 | Outpatient (CLI) | payer OTHER ==
[~2020-09-28] MED LIST changes: +PREDNISONE50 MG PO
[2020-09-28 13:03] LABS: BASO # 0.1 10*3/uL (0.0-0.1); BASO % 0.9 % (0.0-1.0); EOS # 0.6 10*3/uL (0.0-0.4); EOS % 6.1 % (1.0-4.0); HEMATOCRIT 40.2 % (37.0-47.0); LYMPH # 2.1 10*3/uL (1.3-4.4); LYMPH % 23.4 % (27.0-41.0); MEAN CELL VOLUME 95.9 fl (81.0-99.0); MEAN CORPUSCULAR HGB 31.3 pg (27.0-31.0); MEAN CORPUSCULAR HGB CONC 32.6 g/dl (33.0-37.0); MEAN PLATELET VOLUME 9.3 fl (9.6-12.3); MONO # 0.5 10*3/uL (0.1-1.0); MONO % 4.9 % (3.0-9.0); NEUT # 5.8 10*3/uL (2.3-7.9); NEUT % 63.6 % (47.0-73.0); PLATELET COUNT AUTOMATED 286 10*3/uL (130-400); RED BLOOD COUNT 4.19 10*6/uL (4.10-5.10); RED CELL DISTRI WIDTH 13.8 % (0-14.5); WHITE BLOOD COUNT 9.1 10*3/uL (4.8-10.8)
[2020-09-28 13:43] LABS: BUN 11 mg/dl (7-24); CHLORIDE 107 mmol/L (98-107); CHOLESTEROL 227 mg/dL (<200); CREATININE 0.74 mg/dL (0.55-1.02); SGOT/AST 27 IU/L (3-35); SGPT/ALT 39 U/L (12-78); SODIUM 140 mmol/L (136-145); TOTAL PROTEIN 7.1 gm/dL (6.4-8.2); TRIGLYCERIDES 170 mg/dl (<150)
[2020-09-28 13:50] LABS: ALKALINE PHOSPHATASE 145 U/L (45-117); FREE T4 0.75 ng/dl (0.76-1.46); LDL CHOLESTEROL 137 mg/dL (9-159)
[2020-09-28 13:54] LABS: VITAMIN D, 25-HYDROXY 37.6 ng/mL (30-100)
== END | disposition home or self-care (01) ==
LOC: LAB 12:05
PROVIDERS: ATTEND Internal Medicine
DX: D52.9 Folate deficiency anemia, unspecified (principal); D51.9 Vitamin B12 deficiency anemia, unspecified; R70.0 Elevated erythrocyte sedimentation rate; R79.82 Elevated C-reactive protein (CRP); R74.8 Abnormal levels of other serum enzymes; R79.89 Other specified abnormal findings of blood chemistry; R53.81 Other malaise; E55.9 Vitamin D deficiency, unspecified; E03.9 Hypothyroidism, unspecified; Z13.1 Encounter for screening for diabetes mellitus; Z13.21 Encounter for screening for nutritional disorder; Z13.220 Encounter for screening for lipoid disorders; Z00.01 Encounter for general adult medical examination with abnormal findings

== ENCOUNTER → 2021-01-15 | Outpatient (CLI) | payer OTHER | END | disposition home or self-care (01) | LOC: COVID19 14:57 | PROVIDERS: ATTEND Internal Medicine | DX: Z20.822 Contact with and (suspected) exposure to COVID-19 (principal) ==

== ENCOUNTER → 2021-01-29 | Outpatient (CLI) | payer OTHER | END | disposition home or self-care (01) | LOC: COVID19 16:08 | PROVIDERS: ATTEND Internal Medicine | DX: Z11.52 Encounter for screening for COVID-19 (principal) ==

== ENCOUNTER 2021-06-19 13:56 | Emergency (ER) | payer OTHER ==
[~2021-06-19] VITALS: Ht 170.1 cm; Wt 131.5 kg
[2021-06-19 14:01] VITALS: BP 146/76
[2021-06-19] MEDS ORDERED: ZYRTEC10 M3 PO (14:31)
[2021-06-19] MEDS ORDERED: AUGMENTIN 875-875 MG PO (14:31)
== END 2021-06-19 14:36 | disposition home or self-care (01) ==
LOC: ED 13:56
DX: H66.92 Otitis media, unspecified, left ear (principal); J32.8 Other chronic sinusitis; Z79.899 Other long term (current) drug therapy; Z98.51 Tubal ligation status; Z98.890 Other specified postprocedural states; Z90.49 Acquired absence of other specified parts of digestive tract

== ENCOUNTER 2021-08-01 07:38 | Emergency (ER) | payer OTHER ==
[~2021-08-01] VITALS: Wt 133.8 kg
[~2021-08-01 07:38] MED LIST changes: +ZYRTEC10 M3 PO
[2021-08-01 07:49] VITALS: BP 118/74
[2021-08-01] MEDS ORDERED: PREDNISONE50 MG PO (08:09)
== END 2021-08-01 08:23 | disposition home or self-care (01) ==
LOC: ED 07:38
DX: G56.03 Carpal tunnel syndrome, bilateral upper limbs (principal); Z79.899 Other long term (current) drug therapy; Z98.51 Tubal ligation status; Z98.890 Other specified postprocedural states

== ENCOUNTER 2021-09-07 12:49 | Emergency (ER) | payer OTHER ==
[~2021-09-07] VITALS: Wt 130.2 kg
[2021-09-07 12:58] VITALS: BP 136/68
[2021-09-07 13:39] LABS: BASO # 0.1 10*3/uL (0.0-0.1); EOS # 0.2 10*3/uL (0.0-0.4); EOS % 2.2 % (1.0-4.0); HEMATOCRIT 39.3 % (37.0-47.0); LYMPH # 2.2 10*3/uL (1.3-4.4); LYMPH % 26.5 % (27.0-41.0); MEAN CELL VOLUME 89.5 fl (81.0-99.0); MEAN CORPUSCULAR HGB 29.8 pg (27.0-31.0); MEAN CORPUSCULAR HGB CONC 33.3 g/dl (33.0-37.0); MONO # 0.4 10*3/uL (0.1-1.0); MONO % 5.2 % (3.0-9.0); NEUT # 5.4 10*3/uL (2.3-7.9); NEUT % 64.6 % (47.0-73.0); PLATELET COUNT AUTOMATED 327 10*3/uL (130-400); RED BLOOD COUNT 4.39 10*6/uL (4.10-5.10); RED CELL DISTRI WIDTH 13.6 % (0-14.5); WHITE BLOOD COUNT 8.3 10*3/uL (4.8-10.8)
[2021-09-07] MEDS ORDERED: MELOXICAM7.5 MG PO (13:58)
[2021-09-07] MEDS ORDERED: TRAZODONE50 MG PO (13:58)
[2021-09-07 14:00] LABS: ALKALINE PHOSPHATASE 136 U/L (45-117); BUN 8 mg/dl (7-24); CHLORIDE 110 mmol/L (98-107); CREATININE 0.75 mg/dL (0.55-1.02); LIPASE 76 U/L (73-393); POTASSIUM 3.9 mmol/L (3.5-5.1); SGOT/AST 19 IU/L (3-35); SGPT/ALT 33 U/L (12-78); SODIUM 139 mmol/L (136-145); TOTAL PROTEIN 7.1 gm/dL (6.4-8.2)
[2021-09-07 14:02] LABS: BETA-HCG, QUANT < 1.0 mIU/mL (1-3)
[2021-09-07 14:29] LABS: BILIRUBIN 1+ (Negative); BLOOD Negative (Negative); CLARITY Clear (Clear); COLOR Orange (Yellow); GLUCOSE Negative (Negative); KETONE Negative (Negative); LEUKO ESTERASE 1+ (Negative); NITRITE Positive (Negative); SPECIFIC GRAVITY 1.015 (1.001-1.030)
[2021-09-07 14:39] LABS: BACTERIA 2+
[2021-09-07] MEDS ORDERED: CIPRO500 MG PO (16:44)
== END 2021-09-07 17:05 | disposition home or self-care (01) ==
LOC: ED 12:49
PROVIDERS: Emergency Medicine
DX: N39.0 Urinary tract infection, site not specified (principal); Z79.899 Other long term (current) drug therapy; Z98.890 Other specified postprocedural states; Z98.51 Tubal ligation status; Z90.49 Acquired absence of other specified parts of digestive tract

== ENCOUNTER 2021-12-30 12:46 | Emergency (ER) | payer OTHER ==
[~2021-12-30] VITALS: Ht 170.1 cm; Wt 127.0 kg
[~2021-12-30 12:46] MED LIST changes: +DOXYCYCLINE MO100 MG PO; +LEVOTHYROXINE50 MCG PO; +MELOXICAM7.5 MG PO; +TRAZODONE50 MG PO; +XARELTO10 MG PO
[2021-12-30 12:51] VITALS: BP 106/58
[2021-12-30] MEDS ORDERED: HYDROCODONE-AC1 EAC1 PO (13:07)
== END 2021-12-30 13:18 | disposition home or self-care (01) ==
LOC: ED 12:46
DX: G89.18 Other acute postprocedural pain (principal); Z79.899 Other long term (current) drug therapy; Z98.51 Tubal ligation status; Z98.890 Other specified postprocedural states; Z90.49 Acquired absence of other specified parts of digestive tract

== ENCOUNTER → 2022-09-04 | Day surgery (SDC) | payer OTHER ==
[~2022-09-04] VITALS: Ht 170.1 cm; Wt 131.5 kg
[~2022-09-04] MED LIST changes: +ASPIRIN81 M1 PO; +DICYCLOMINE HCL10 MG PO; +HYDROCODONE-AC1 EAC1 PO; +MELOXICAM15 MG PO; +NEURONTIN300 MG PO; +PROPRANOLOL HCL20 MG PO; +SIMVASTATIN40 MG PO; +VIBRAMYCIN HYC100 MG PO; +VITAMIN D325 MCG PO
[2022-09-04 06:50] VITALS: BP 125/74
[2022-09-04 08:10] VITALS: BP 117/61
[2022-09-04 08:25] VITALS: BP 129/78
[2022-09-04 08:40] VITALS: BP 100/76
[2022-09-04 12:10] VITALS: BP 117/61
== END | disposition home or self-care (01) ==
LOC: SDC 08-30 14:00
PROVIDERS: ATTEND Podiatrist Foot & Ankle Surgery
DX: T84.84XA Pain due to internal orthopedic prosthetic devices, implants and grafts, initial encounter (principal); F41.9 Anxiety disorder, unspecified; F32.A Depression, unspecified; K21.9 Gastro-esophageal reflux disease without esophagitis; G43.909 Migraine, unspecified, not intractable, without status migrainosus; Y82.8 Other medical devices associated with adverse incidents

== ENCOUNTER 2024-03-15 18:27 | Emergency (ER) | payer OTHER ==
[~2024-03-15] VITALS: Ht 170.1 cm; Wt 145.1 kg
[2024-03-15 18:52] VITALS: BP 110/53
[2024-03-15] MEDS ORDERED: ACETAMINOPHEN 325 MG TAB PO ONE (19:00)
== END 2024-03-15 21:05 | disposition home or self-care (01) ==
LOC: ED 18:27
DX: S63.502A Unspecified sprain of left wrist, initial encounter (principal); F32.A Depression, unspecified; K21.9 Gastro-esophageal reflux disease without esophagitis; E78.00 Pure hypercholesterolemia, unspecified; F41.9 Anxiety disorder, unspecified; G43.909 Migraine, unspecified, not intractable, without status migrainosus; Z90.49 Acquired absence of other specified parts of digestive tract; Z98.51 Tubal ligation status; Z98.890 Other specified postprocedural states; W01.0XXA Fall on same level from slipping, tripping and stumbling without subsequent striking against object, initial encounter; Y93.89 Activity, other specified; Y92.009 Unspecified place in unspecified non-institutional (private) residence as the place of occurrence of the external cause; Y99.8 Other external cause status

== ENCOUNTER 2024-10-11 17:32 | Emergency (ER) | payer OTHER ==
[~2024-10-11] VITALS: Ht 170.1 cm; Wt 145.1 kg
[2024-10-11 18:12] VITALS: BP 136/63
[2024-10-11] MEDS ORDERED: Acetaminophen/Hydrocodone 5 MG/325 MG TABLET PO ONE (21:05)
== END 2024-10-11 21:30 | disposition home or self-care (01) ==
LOC: ED 17:32
DX: S93.602A Unspecified sprain of left foot, initial encounter (principal); Z79.899 Other long term (current) drug therapy; Z98.51 Tubal ligation status; Z98.890 Other specified postprocedural states; X58.XXXA Exposure to other specified factors, initial encounter; Y93.89 Activity, other specified; Y92.89 Other specified places as the place of occurrence of the external cause; Y99.8 Other external cause status